=== PATIENT | female | born 1980 | race Caucasian/White ===

== ENCOUNTER 2016-06-10 22:03 | Inpatient (IN) | payer MEDICAID ==
[~2016-06-10] VITALS: Ht 162.6 cm; Wt 87.4 kg
[~2016-06-10 22:03] MED LIST: PRENAT PO
[2016-06-10 22:08] VITALS: BP 124/72; PULSE 79; RESP 18
[2016-06-10] MEDS ORDERED: LACTATED RINGER'S 1,000 ML IV SCH (22:19)
[2016-06-10] MEDS ORDERED: METHYLERGONOVINE 0.2 MG INJ IM PRN (22:30)
[2016-06-10] MEDS ORDERED: OXYTOCIN 30 UNITS/LR 500 ML IV PRN (22:30)
[2016-06-10] MEDS ORDERED: LIDOCAINE 1% (MPF) 30 ML INJ INJ PRN (22:30)
[2016-06-10] MEDS ORDERED: ACETAMINOPHEN/CODEINE #3 TAB PO PRN (22:30)
[2016-06-10] MEDS ORDERED: BUTORPHANOL 2 MG INJ IV PRN (22:30)
[2016-06-10] MEDS ORDERED: OXYTOCIN 30 UNITS/LR 500 ML IV SCH ×2 (22:30)
[2016-06-10] MEDS ORDERED: CARBOPROST 250 MCG INJ IM PRN (22:30)
[2016-06-10] MEDS ORDERED: MISOPROSTOL 200 MCG TAB PR PRN (22:30)
--- NOTE | 2016-06-10 22:31 | TRIAGE ---
OB Triage Datetime Report Generated by CPN: 06/10/2016 22:31 Datetime: 06/10/2016 22:28 Time of Arrival: 06/10/2016 22:02 EGA: 39.5 Arrived By: Wheelchair Arrived From: Home Chief Complaint: [id number] w/ c/o ucs and srom at 2130. Denies hx problems this prgnancy Movement: Present Contractions: Regular Time Contractions Began: 06/10/2016 15:00 Contractions: q8-10 Rupture of Membranes: Ruptured Vaginal Bleeding: Normal Show Vaginal Discharge: Present Recent Sexual Intercouse: Denies Abdominal Trauma: Not Applicable Patient Complaints: Contractions Time Provider Notified: 06/10/2016 22:23 Provider Notified: Dr Cortes Initial Plan: EFM,SVE Datetime: 06/10/2016 22:11 Maternal Assessment Level of Consciousness: Fully Conscious Headache: Denies Blurred Vision: No Nausea/Vomiting: Denies RUQ Epigastric Pain: Denies Facial Edema: None Heart Rate FHR Baseline Rate: 145 Monitor Mode: External US Pain Assessment Pain Scale: 7 Pain Presence: Intermittent Pain Type: Contraction Pain Location: Abdomen Vaginal Exam Dilatation (cms): 4.0 Effacement (%): 80 Station: -2 Exam By: E FRANCESCO Membrane Status: Ruptured Membranes Rupture Method: Spontaneous Amniotic Fluid Amount: Large Amniotic Fluid Odor: Normal Vaginal Bleeding: Normal Show Pool: Positive Nitrazine: Positive Cervix, Consistency: Soft Cervix, Position: Posterior Presentation 'A': Cephalic Datetime: 06/10/2016 22:07 Membrane Status: Ruptured Datetime: 06/06/2016 12:00 Stage of : OB Triage Maternal Assessment Level of Consciousness: Fully Conscious Labor Evaluation Frequency: OCCASIONAL Monitor Mode: External Duration (sec)2399: 50-60 Quality: Mild Resting Tone Sunsites: Relaxed Heart Rate FHR Baseline Rate: 135 Monitor Mode: External US Variability: Moderate 6-25 bpm Accelerations: 15X15 Decelerations: Variable Pain Assessment Pain Scale: 0 Pain Presence: None/Denies Pain Goal: 3 Membrane Status: Intact Vaginal Bleeding: None Datetime: 06/06/2016 11:21 Vaginal Exam Dilatation (cms): 1.5 Effacement (%): 50 Station: -2 Exam By: ale Vaginal Bleeding: Scant Cervix, Consistency: Moderate Cervix, Position: Posterior Datetime: 06/06/2016 11:12 Assessment Type: Triage Maternal Assessment Level of Consciousness: Fully Conscious DTR's/Clonus: DTRs 2+; No Clonus Headache: Denies Blurred Vision: No Respiratory Effort: Unlabored; Regular Rhythm; Equal Expansion Breath Sounds, Left: Clear and Equal Breath Sounds, Right: Clear and Equal Nausea/Vomiting: Denies RUQ Epigastric Pain: Denies Lower Extremities Edema: None Degree: None Upper Extremities Edema: None Degree: None Facial Edema: None Fall Risk Assessment History of Falling: (0) No Secondary Diagnosis: (0) No Ambulatory Aid: (0) Bedrest/Nurse Assist IV Therapy: (0) No Gait: (0) Normal/Bedrest/Immobile Mental Status: (0) Oriented to Own Ability Fall Score: 0 Fall Risk Score Definition: No Risk: No action required Datetime: 06/06/2016 11:10 Time of Arrival: 06/06/2016 10:54 EGA: 39.1 Arrived By: Ambulatory Arrived From: Home Movement: Decreased Contractions: Irregular Time Contractions Began: 06/06/2016 05:00 Rupture of Membranes: Denies Vaginal Bleeding: None Vaginal Discharge: Denies Recent Sexual Intercouse: Denies Abdominal Trauma: Not Applicable Patient Complaints: Contractions; Cramping; Back Pain Additional Patient Complaints: EFM, SVE Time Provider Notified: 06/06/2016 11:59 Provider Notified: SOHA Initial Plan: TANIKA JORGENSEN
[2016-06-10 22:37] VITALS: BP 118/74; PULSE 74
[2016-06-10] MEDS ORDERED: LACTATED RINGER'S 1,000 ML IV PRN (23:00)
[2016-06-10 23:03] LABS: ADD SCAN DIFF NO
[2016-06-10 23:07] LABS: BASOPHILS % 0.1 % (0.0-2.0); EOSINOPHILS # 0.1 10^3/ul (0.0-0.5); EOSINOPHILS % 1.3 % (0.0-7.0); HEMATOCRIT 37.8 % (37.0-47.0); HEMOGLOBIN 12.6 g/dl (12.0-16.0); LYMPHOCYTES # 1.9 10^3/ul (0.8-2.9); LYMPHOCYTES % 22.2 % (15.0-51.0); MEAN CORPUSCULAR HEMOGLOBIN 31.7 pg (29.0-33.0); MEAN CORPUSCULAR HGB CONC 33.3 g/dl (32.0-37.0); MEAN CORPUSCULAR VOLUME 95.2 fl (82.0-101.0); MEAN PLATELET VOLUME 11.1 fl (7.4-10.4); MONOCYTE # 0.6 10^3/ul (0.3-0.9); MONOCYTES % 6.7 % (0.0-11.0); NEUTROPHIL # 5.8 10^3/ul (1.6-7.5); NEUTROPHILS % 69.3 % (39.0-77.0); PLATELET COUNT 145 10^3/UL (140-415); RED BLOOD COUNT 3.97 10^6/ul (4.20-5.40); RED CELL DISTRIBUTION WIDTH 13.2 % (11.5-14.5); WHITE BLOOD COUNT 8.4 10^3/ul (4.8-10.8)
[2016-06-10 23:27] LABS: INR 0.85; PROTIME 11.6 Sec (12.2-14.2); PT RATIO 0.9
[2016-06-10 23:28] LABS: PARTIAL THROMBOPLASTIN TIME 23.9 Sec (25.0-35.0)
--- NOTE | 2016-06-10 23:33 | HP ---
Date/Time of Note Date/Time of Note DATE: 06/10/16 TIME: 23:27 OB - History Hx of Present Free Text/Dictation 35 yo P2 @ 40 wks present w SROM, in early labor, 4cm Chief Complaint: SROM, labor Last Menstrual Period: September 07, 2015 Estimated Due Date: Jun 12, 2016 : 3 Para: 2 Spontaneous : 0 Therapeutic : 1 Care: Good Care Obstetrical Complications: None Medical Complications: None Past Family/Social History * Past Medical, Surgical, Family and Obstetric Histories reviewed from chart. Blood Type: O+ Rubella: immune RPR/VDRL: Negative GBS Status: Negative HBsAG: Negative ( ) OB Admission Exam Vital Signs Vital Signs Vital Signs Date Time Temp Pulse Resp B/P Pulse Ox O2 Delivery O2 Flow Rate FiO2 06/10/16 22:37 97.8 74 118/74 Room Air 06/10/16 22:08 18 Physical Exam Abdomen: WNL Cervical Dilatation: 4cm Effacement: 75% Station: -2 Membranes: Intact Accelerations: Accelerations Present Decelerations: No Decelerations Varibility: Moderate Contractions on Admission: < 5 Minutes Apart Intensity: Moderate Last 72 hours Lab Results CBC & BMP 06/10/16 22:55 OB Assessment/Plan Other Assessment: 35 yo P2 @ 40 wks, SROM, in early labor -gbs neg -reassuring status Other plan: adrmit to L&D anticipate JESSICA BOOKER MD Jun 10, 2016 23:33
--- NOTE | 2016-06-10 23:36 | LDN ---
Date/Time of Note Date/Time of Note DATE: 06/10/16 TIME: 23:33 Delivery Summary patient progressed rapidly to complete and began pushing. she was when I arrived into the room uncomplicated of head, followed by shoulders; no nuchal cord intact perineum spontaneous delivery of placenta weight 2980gm, girl, 9/9 EBL 200mL Placenta Delivered: Spontaneously Perineum intact?: Yes Anesthesia type: None Estimated blood loss: 200 Sponge & Needle done & correct: Yes All needle counts correct: Yes Problems: Delivery Information Apgars 1 Minute: 9 5 Minute: 9 Suctioning Nose & mouth suctioned at [place]: Yes Umbilical Cord Umbilical cord with: 3 Vessels Cord presentations: no nuchal cord Cord Blood was obtained: Yes Mother & Baby Disposition Disposition Mom & Baby to Maternity; Good: Yes JESSICA BOOKER MD Jun 10, 2016 23:36
[2016-06-11] MEDS ORDERED: CARBOPROST 250 MCG INJ IM PRN
[2016-06-11] MEDS ORDERED: METHYLERGONOVINE 0.2 MG INJ IM PRN
[2016-06-11] MEDS ORDERED: MISOPROSTOL 200 MCG TAB PR PRN
[2016-06-11] MEDS ORDERED: OXYTOCIN 30 UNITS/LR 500 ML IV PRN
[2016-06-11] MEDS ORDERED: LANOLIN 7 GM TUBE TOP PRN
--- NOTE | 2016-06-11 01:19 | DELSUM ---
Delivery Summary A-C Datetime Report Generated by CPN: 06/11/2016 01:18 DELIVERY PERSONNEL Counter Dish Carrier: [place], Cheyanne Karyn MATERNAL INFORMATION Delivery Anesthesia: None Medications in Delivery: 30 UNITS PITOCIN IN 500 ML LR Estimated Blood Loss (ml): 200 Placenta Cultured: No Maternal Complications: None RN Comments: QBL 145 ML LABOR SUMMARY EDC: 06/12/2016 00:00 EDC: 09/25/2016 00:00 No. Babies in Womb: 1 Attempted: No Labor Anesthesia: None LABOR INFORMATION Reason for Induction: Not Applicable Onset of Labor: 06/10/2016 15:00 Complete Dilatation: 06/10/2016 23:07 Oxytocin: N/A Group B Beta Strep: Negative Group B Beta Strep: Positive Antibiotics # of Doses: 0 Steroids Given: None Reason Steroids Not Administered: Not Applicable MEMBRANES Membranes Rupture Method: Spontaneous Membranes Rupture Method: Spontaneous Rupture of Membranes: 06/10/2016 21:30 Length of Rupture (hr): 1.78 Amniotic Fluid Color: Clear Amniotic Fluid Amount: Large Amniotic Fluid Odor: Normal STAGES OF LABOR Stage 1 hr: 8 Stage 1 min: 7 Stage 2 hr: 0 Stage 2 min: 10 Stage 3 hr: 0 Stage 3 min: 3 Total Time in Labor hr: 8 Total Time in Labor min: 20 VAGINAL DELIVERY Episiotomy: None Laceration Extension: N/A Laceration Type: None Laceration Repair: Not Applicable Initial Vag Sponge Count: 20 Final Vag Sponge Count: 20 Initial Vag Sharps Count: 1 Final Vag Sharps Count: 1 Sponge Count Correct: Yes Sharps Count Correct: Yes Count Comment: NO SHARPS ADDED DURING DELIVERY BABY A INFORMATION Delivery Date/Time: 06/10/2016 23:17 Method of Delivery: Vaginal Method of Delivery: Vaginal Born in Route : No : N/A Forceps: N/A Vacuum Extraction: N/A Shoulder Dystocia : N/A SHOULDER DYSTOCIA BABY A Infant Delivery Date/Time: 06/10/2016 23:17 PRESENTATION/POSITION BABY A Presentation: Cephalic Cephalic Presentation: Vertex Vertex Position: Left Occipital Anterior Breech Presentation: N/A PLACENTA INFORMATION BABY A Placenta Delivery Time : 06/10/2016 23:20 Placenta Method of Delivery: Spontaneous Placenta Status: Delivered SCORES BABY A Heart Rate 1 min: >100 bpm Resp Effort 1 min: Good Cry Reflex Irritability 1 min: Cough/Sneeze/Pulls Away Muscle Tone 1 min: Active Motion Color 1 min: Body [place], Extremit Blue Resuscitation Effort 1 min: Tactile Stimulation SCORE 1 MIN: 9 Heart Rate 5 min: >100 bpm Resp Effort 5 min: Good Cry Reflex Irritability 5 min: Cough/Sneeze/Pulls Away Muscle Tone 5 min: Active Motion Color 5 min: Body [place], Extremit Blue Resuscitation Effort 5 min: Tactile Stimulation SCORE 5 MIN: 9 INFANT INFORMATION BABY A Gestational Age at Delivery: 39.5 Gestational Status: Full Term- 39- 40.6 Weeks Outcome : Liveborn Condition : Stable Infant Sex: Female Infant Sex: Female IDENTIFICATION/MEDS BABY A ID Band Number: [id number] ID Band Location: Right Leg; Left Arm Sensor Applied: Yes Sensor Number: [id number] Sensor Location : Cord Clamp Vitamin K Given : Not Given Erythromycin Given: Not Given WEIGHT/LENGTH BABY A Infant Birthweight (gm): 2980 Infant Weight (lb): 6 Weight (oz): 9 Infant Length (in): 18.00 Infant Length (cm): 45.72 CORD INFORMATION BABY A No. Cord Vessels: 3 Nuchal Cord : N/A Cord Blood Taken: Yes Suction: Mouth; Nose ASSESSMENT BABY A Complications: None Physical Findings at Delivery: Within Normal Limits Infant Respirations: Appears Normal Senior Sustainability Advisor/ALS Called : No Care By: Bennett LEWIS RN Transferred To: Remains with Mother
[2016-06-11 01:35] VITALS: BP 113/64; PULSE 69; RESP 18
[2016-06-11 02:35] VITALS: BP 119/69; PULSE 73; RESP 19
[2016-06-11 03:45] VITALS: BP 109/64; PULSE 74; RESP 19
[2016-06-11] MEDS: LACTATED RINGER'S 1,000 ML IV* SCH ×4 (03:46→19:18)
[2016-06-11] MEDS: IBUPROFEN 800 MG TAB PO SCH ×5 (05:43→23:34)
[2016-06-11 07:16] LABS: ADD SCAN DIFF NO
[2016-06-11 07:25] LABS: BASOPHILS % 0.1 % (0.0-2.0); EOSINOPHILS % 0.4 % (0.0-7.0); HEMATOCRIT 35.1 % (37.0-47.0); HEMOGLOBIN 11.5 g/dl (12.0-16.0); LYMPHOCYTES # 1.9 10^3/ul (0.8-2.9); LYMPHOCYTES % 18.9 % (15.0-51.0); MEAN CORPUSCULAR HEMOGLOBIN 31.8 pg (29.0-33.0); MEAN CORPUSCULAR HGB CONC 32.8 g/dl (32.0-37.0); MEAN PLATELET VOLUME 11.9 fl (7.4-10.4); MONOCYTE # 0.5 10^3/ul (0.3-0.9); MONOCYTES % 5.2 % (0.0-11.0); NEUTROPHIL # 7.5 10^3/ul (1.6-7.5); PLATELET COUNT 133 10^3/UL (140-415); RED BLOOD COUNT 3.62 10^6/ul (4.20-5.40); RED CELL DISTRIBUTION WIDTH 13.2 % (11.5-14.5)
[2016-06-11 08:00] VITALS: BP 104/59; PULSE 66
--- NOTE | 2016-06-11 11:52 | PN ---
Date/Time of Note Date/Time of Note DATE: 06/11/16 TIME: 11:50 OB Subjective Subjective Subjective day 1 Afebrile, abdomen is, uterus firm, lochia normal, extremity normal ambulating. OB Assessment/Plan Reason for admission: other (Status day 1, normal vaginal delivery) SANTI HOYOS MD Jun 11, 2016 11:52
[2016-06-11 16:00] VITALS: BP 98/62; PULSE 64; RESP 18
[2016-06-11 20:00] VITALS: BP 108/60; PULSE 79; RESP 18
[2016-06-12 03:50] VITALS: BP 105/52; PULSE 72; RESP 19
[2016-06-12] MEDS: IBUPROFEN 800 MG TAB PO SCH ×2 (05:42→12:02)
[2016-06-12] MEDS: LACTATED RINGER'S 1,000 ML IV* SCH (06:26)
[2016-06-12 08:00] VITALS: BP 104/61; PULSE 66; RESP 18
--- NOTE | 2016-06-12 13:22 | PD.PPDC ---
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
--- NOTE | 2016-06-12 13:25 | DS ---
Date/Time of Note Date/Time of Note DATE: 06/12/16 TIME: 13:24 Obstetrical Discharge Record Final Diagnosis Final Diagnosis: Term delivered Vaginal Delivery Obstetrical Delivery: Spontaneous Condition on Discharge Physical Assessment Last Vitals: Post normal vaginal delivery day 2, afebrile abdomen soft uterus firm lochia normal extremity normal patient discharged home with follow-up instruction recommended to make appointment to be seen at the clinic in 2 weeks Voiding: Yes Bowel Movement: Yes Breast: Soft, non-tender, Filling Fundus: Firm Calf Tenderness: No Patient Condition: Good SANTI HOYOS MD Jun 12, 2016 13:25
== END 2016-06-12 18:20 | disposition home or self-care (01) | DRG 775 ==
LOC: OBT 22:03 → L-D 22:05 → OBT 22:15 → L-D 22:15 → PP1 06-11 01:25
PROVIDERS: ADMIT Obstetrics & Gynecology; ATTEND Obstetrics & Gynecology
PROC: 10E0XZZ Delivery of Products of Conception, External Approach (ICD-10-PCS; principal; 2016-06-10)
DX: O48.0 Post-term pregnancy (principal); Z37.0 Single live birth; Z3A.40 40 weeks gestation of pregnancy
CPT/HCPCS: 85025; 85610; 85730; 86592; 86900; 86901; G0463; J2590; J7120